=== PATIENT | male | born 2000 | race Caucasian/White ===

== ENCOUNTER 2021-09-08 16:26 | Emergency (ER) | payer OTHER ==
[~2021-09-08] VITALS: Ht 180.3 cm; Wt 74.8 kg
[2021-09-08] MEDS ORDERED: IBU600 MG PO (18:25)
== END 2021-09-08 19:55 | disposition home or self-care (01) ==
LOC: ER 16:26 → EMR PED 16:26
DX: S40.012A Contusion of left shoulder, initial encounter (principal); X58.XXXA Exposure to other specified factors, initial encounter; Y93.89 Activity, other specified; Y92.832 Beach as the place of occurrence of the external cause; Y99.9 Unspecified external cause status